=== PATIENT | female | born 1940 | race Caucasian/White ===

== ENCOUNTER → 2017-05-30 | Outpatient (CLI) | payer MEDICARE, OTHER ==
[~2017-05-30] MED LIST: CHOL5000 PO; CYCL5TAB PO; LISI1TAB3 PO; LORA10TA37 PO; MECL-76 PO; OMEP40CA6 PO; ONDA4TAB13 SL; OXYC-302 PO; PHEN15CA2 PO; TRIA1CAP3 PO; allergy pill; eye vitamin PO; tylenol arthritis PO
== END | disposition home or self-care (01) ==
LOC: CFH 13:14
PROVIDERS: ATTEND Physician Assistant
DX: M50.00 Cervical disc disorder with myelopathy, unspecified cervical region (principal); M47.12 Other spondylosis with myelopathy, cervical region
CPT/HCPCS: 72141

== ENCOUNTER → 2018-07-28 | Outpatient (CLI) | payer MEDICARE, OTHER ==
[2018-07-28 16:10] LABS: ALBUMIN 3.9 g/dL (3.4-5.0); ANION GAP 6 mmol/L (5-15); CHLORIDE 107 mmol/L (98-107)
[2018-07-28 16:13] LABS: ALANINE AMINOTRANSFERASE 21 U/L (12-78); ALKALINE PHOSPHATASE 116 U/L (45-117); BILIRUBIN,TOTAL 0.5 mg/dL (0.2-1.0); CREATININE 0.97 mg/dL (0.55-1.02)
== END | disposition home or self-care (01) ==
LOC: CFH 13:02
PROVIDERS: ATTEND Nurse Practitioner Family
DX: I63.9 Cerebral infarction, unspecified (principal); R42 Dizziness and giddiness
CPT/HCPCS: 36415; 80053

== ENCOUNTER → 2020-03-20 | Outpatient (CLI) | payer MEDICARE, OTHER ==
[~2020-03-20] MED LIST changes: +ALPR0.5T7 PO; +CHOL500015 PO; +IBUP200C8 PO; +LISI1TAB23 PO; -LISI1TAB3 PO; +MULT-706 PO; +OMEP40CA42 PO; -OMEP40CA6 PO; +POTA99TA2 PO; +VITA400C43 PO; +VITA40TA PO; +ZINC50CA PO; +[UNRECOGNIZED DRUG - CODE] PO; +[UNRECOGNIZED DRUG - OTHER] PO; +[UNRECOGNIZED DRUG - OTHER] PO; +[UNRECOGNIZED DRUG - REMARK] PO; +allegra PO; +co q-10 PO; +magnesium PO; +turmeric PO; +vitamin c PO
== END | disposition home or self-care (01) ==
LOC: STAR 12:40
PROVIDERS: ATTEND Internal Medicine Gastroenterology
DX: Z01.818 Encounter for other preprocedural examination (principal); K44.9 Diaphragmatic hernia without obstruction or gangrene; I49.8 Other specified cardiac arrhythmias; Z20.828 Contact with and (suspected) exposure to other viral communicable diseases
CPT/HCPCS: 71046; 87635; 93005